=== PATIENT | male | born 1950 | race Caucasian/White ===

== ENCOUNTER 2018-06-08 12:21 | Inpatient (IN) ==
[2018-06-08] MEDS ORDERED: Morphine Inj 4 MG/ML Vial IV.PUSH ONE (12:31)
--- NOTE | 2018-06-08 12:36 | ED ---
HPI General Chief complaint: Fall Stated complaint: Fall Time Seen by Provider: 06/08/18 12:31 History of Present Illness HPI narrative: This is a 68-year-old male who presents via EMS for evaluation after a mechanical fall. He reports that prior to arrival he was walking in his driveway wearing flip-flops when he tripped and fell, landing on his right hip. No head trauma or loss of consciousness. He is complaining of right hip pain, achy, constant, worse with movement, improved when he lays on his left side. He reports some numbness in his right leg. He denies any back pain, neck pain, abdominal pain. Symptoms are moderate. His primary care physician is Dr. Rolle. He reports a history of hypertension and Crohn's disease. No other complaints at this time. Related Data Home Medications Medication Instructions Recorded Confirmed losartan 50 mg PO DAILY 06/08/18 06/08/18 mesalamine 800 mg PO TID 06/08/18 06/08/18 Allergies Allergy/AdvReac Type Severity Reaction Status Date / Time No Known Allergies Allergy Verified 06/08/18 12:31 Review of Systems ROS: all other systems reviewed are negative [facility] Medical History Medical History HTN (hypertension) (Acute) IBS (irritable bowel syndrome) (Acute) Surgical History Surgical History H/O hernia repair (Acute) H/O right knee surgery (Acute) Social History Social History Second Hand Smoke Exposure: No Smoking Status: Never smoker How Often Do You Have a Drink Containing Alcohol: Never Recent Travel in [facility] within the Last 8 Weeks: No Recent Out of Country Travel within the Last 8 Weeks: No Exam Narrative Exam Narrative: GENERAL: Well-developed well-nourished male no acute distress SKIN: Warm and dry. No abrasions, no ecchymosis. HEAD: Atraumatic. Normocephalic. EYES: Pupils equal and round. No scleral icterus. No injection or drainage. CARDIOVASCULAR: Regular rate and rhythm. No murmur appreciated. RESPIRATORY: No accessory muscle use. Clear to auscultation. Breath sounds equal bilaterally. GASTROINTESTINAL: Abdomen soft, non-tender, nondistended. Hepatic and splenic margins not palpable. MUSCULOSKELETAL: There is tenderness to palpation to the lateral aspect of the right hip. The patient is holding his right leg in slight flexion on top of folded blankets. There is no obvious external rotation passively. 2+ dorsalis pedis pulse bilaterally. Distal sensation is preserved. There is an old appearing healing laceration on the dorsal aspect of the right foot. NEUROLOGICAL: Awake and alert. No obvious cranial nerve deficits. Motor grossly within normal limits. Normal speech. Course Initial Documented Vital Signs Temperature 98.6 F 06/08/18 12:25 Pulse Rate 72 06/08/18 12:25 Respiratory Rate 18 06/08/18 12:25 Blood Pressure 143/71 H 06/08/18 12:25 Pulse Oximetry 97 06/08/18 12:25 Last Documented Vital Signs Temperature 98.6 F 06/08/18 12:25 Pulse Rate 72 06/08/18 12:25 Respiratory Rate 18 06/08/18 12:25 Blood Pressure 143/71 H 06/08/18 12:25 Pulse Oximetry 97 06/08/18 12:25 Medical Decision Making MDM Narrative Medical decision making narrative: X-ray imaging of the hip and pelvis will be obtained. The patient will be given IV morphine and Zofran. The right hip intertrochanteric fracture. Plan is for discussion with orthopedic surgeon, admission. Discussed with Dr. Emerson, Dr. Douglas. Medical Screen Exam Complete: Yes Emergency Medical Condition: Yes Differential Diagnosis Differential Diagnosis: Right hip fracture, contusion, pelvic fracture, dislocation Imaging Data Radiologist's impression: Hip X-Ray 06/08/18 12:37 CONCLUSION: 3 fragment intertrochanteric fracture of the right hip. Discharge Plan Discharge Disposition Patient Disposition: 30 Still Patient Discharge Condition Condition: Stable Discharge Details Diagnosis: Closed fracture of right hip Physicians Team ED Provider: Jose Mitchell ED Midlevel Provider: Ulices Foster Rxs /Orders / Referrals /Forms Prescriptions: No Action losartan 50 mg Tablet 50 mg PO DAILY RF: 0 mesalamine 800 mg Tablet,Delayed Release (Dr/Ec) 800 mg PO TID RF: 0 Status ED Status: Pending Admission
--- NOTE | 2018-06-08 13:21 | XR ---
EXAM DATE: 06/08/2018 1:16 PM EST AGE/SEX: 68 years / Male INDICATIONS: Pain from fall. CLINICAL DATA: This is the patient's initial encounter. Patient reports that signs and symptoms have been present for 1 day and indicates a pain score of 10/10. MEDICAL/SURGICAL HISTORY: None. None. COMPARISON: No prior exams available for comparison. FINDINGS: A 3 fragment intertrochanteric fracture is identified through the proximal right femur. The femoral h ead remains well-seated within the acetabulum. CONCLUSION: 3 fragment intertrochanteric fracture of the right hip. Electronically signed by: Viraj Miramontes MD 06/08/2018 1:20 PM EST
[2018-06-08 14:09] LABS: Baso % (Auto) 0.3 % (0.0-2.0); Eos % (Auto) 0.2 % (0.0-4.0); Hematocrit 41.2 % (39.0-51.0); Hemoglobin 13.7 gm/dL (13.0-17.0); Lymph # (Auto) 0.9 th/mm3 (1.0-4.8); Lymph % (Auto) 7.7 % (9.0-44.0); Mean Corpuscular HGB Conc 33.3 % (32.0-36.0); Mean Corpuscular Hemoglobin 31.5 pg (27.0-34.0); Mean Corpuscular Volume 94.5 fL (80.0-100.0); Mean Platelet Volume 6.9 fL (7.0-11.0); Mono # (Auto) 0.5 th/mm3 (0.0-0.9); Mono % (Auto) 4.7 % (0.0-8.0); Neut # (Auto) 9.9 th/mm3 (1.8-7.7); Neut % (Auto) 87.1 % (16.0-70.0); Platelet Count 197 th/mm3 (150-450); Red Blood Count 4.35 mil/mm3 (4.50-5.90); Red Cell Distribution Width 14.1 % (11.6-17.2); White Blood Count 11.3 th/mm3 (4.0-11.0)
[2018-06-08 14:21] LABS: Activated Partial Thrombo Time 26.4 sec (23.4-31.7); Prothrombin Time 10.6 sec (9.8-11.6)
--- NOTE | 2018-06-08 14:42 | XR ---
EXAM DATE: 06/08/2018 1:49 PM EST AGE/SEX: 68 years / Male INDICATIONS: Cough. CLINICAL DATA: This is the patient's initial encounter. Patient reports that signs and symptoms have been present for 1 day and indicates a pain score of 0/10. MEDICAL/SURGICAL HISTORY: None. None. COMPARISON: No prior exams available for comparison. FINDINGS: Lungs are hypoaerated. There is no evidence of acute airspace disease or significant congestion. Hear t is mildly prominent. Osseous structures are intact. CONCLUSION: No evidence of acute cardiopulmonary process. Electronically signed by: Viraj Miramontes MD 06/08/2018 2:41 PM EST
[2018-06-08 14:48] LABS: Calcium 8.5 mg/dL (8.5-10.1); Potassium 3.9 meq/L (3.5-5.1)
[2018-06-08] MEDS ORDERED: Acetaminophen 325 MG Tablet PO PRN ×2 (15:10→18:45)
--- NOTE | 2018-06-08 15:17 | P.HPIM ---
History of Present Illness Primary Care Physician: Rosa Caesy MD Chief Complaint: Right hip pain History of Present Illness: Mr. Clayton is a 68 y/o male with HTN and Crohn's disease. He presented to the ED at [facility] on 06/08/18 with complaints of right hip pain after a fall at home. He reports that prior to arrival he was walking in his driveway wearing flip-flops when he tripped and fell, landing on his right hip. There was no reported head trauma or loss of consciousness. He describes the right hip pain as achy, constant, worse with movement, improved when he lays on his left side. He reports some numbness in his right leg. He denies any back pain, neck pain, abdominal pain. Hip Xray in the ED revealed 3 fragment intertrochanteric fracture of the right hip. Pt is being admitted for orthopedic surgery evaluation. Pt reports that in the past after previous surgeries he has had nausea/vomiting following surgery. 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 This includes certification that hospital inpatient services are reasonable and necessary and in the case of services not specified as inpatient-only under 42 CFR 419.22(n), that they are appropriately provided as inpatient services in accordance to with the 2-midnight benchmark under 43 CFR 412.3(e) Estimated Total Length of Stay (Days): 3 Plans for Post Hospital Care: SNF Medications and Allergies Allergies Allergy/AdvReac Type Severity Reaction Status Date / Time No Known Allergies Allergy Verified 06/08/18 12:31 Home Medications Medication Instructions Recorded Confirmed Type losartan 50 mg PO DAILY 06/08/18 06/08/18 History mesalamine 800 mg PO TID 06/08/18 06/08/18 History Active Medications: Active Medications Acetaminophen (Tylenol) 650 mg PO Q4H PRN PRN Reason: Temp > 100.4 Al Hydroxide/Mg Hydroxide (Milk Of Magnesia Liq) 30 ml PO Q12H PRN PRN Reason: Mild Constipation Ondansetron HCl (Zofran Inj) 4 mg IV.PUSH Q6H PRN PRN Reason: NAUSEA OR VOMITING Senna/Docusate Sodium (Cynthia-Colace) 1 tab PO BID VANITA Sennosides (Senokot) 17.2 mg PO Q12H PRN PRN Reason: Moderate Constipation Physical Exam Vital signs: Last Vital Signs Temp 98.6 F 06/08/18 12:25 Pulse 72 06/08/18 12:25 Resp 18 06/08/18 12:25 BP 143/71 H 06/08/18 12:25 Pulse Ox 97 06/08/18 12:25 Narrative: GENERAL: NAD, AAOx3 SKIN: Warm and dry. HEENT: Atraumatic. Normocephalic. Pupils equal and round. No scleral icterus. No injection or drainage. No nasal bleeding or discharge. Mucous membranes pink and moist. NECK: Trachea midline. No JVD. CARDIO: Regular rate and rhythm. RESP: No accessory muscle use. Clear to auscultation. Breath sounds equal bilaterally. ABD: +BS, soft, non-tender, nondistended. Hepatic and splenic margins not palpable. EXT: Extremities without clubbing, cyanosis, or edema. No obvious deformities. NEURO: Awake and alert. No obvious cranial nerve deficits. Motor grossly within normal limits. Normal speech. PSYCHIATRIC: Appropriate mood and affect; insight and judgment normal. Results Labs CBC & Chem 7: 06/08/18 13:58 06/08/18 13:58 Imaging Hip X-Ray 06/08/18 12:37 CONCLUSION: 3 fragment intertrochanteric fracture of the right hip. Chest X-Ray 06/08/18 13:26 CONCLUSION: No evidence of acute cardiopulmonary process. Caprini VTE Risk Assessment Caprini VTE Risk Assessment: Moderate/High Risk (score >= 2) Caprini Risk Assessment Model: Point Value = 1 Point Value = 2 Point Value = 3 Point Value = 5 Age 41-60 Minor surgery BMI > 25 kg/m2 Swollen legs Varicose veins or History of unexplained or recurrent spontaneous Oral contraceptives or hormone replacement Sepsis (< 1 month) Serious lung disease, including pneumonia (< 1 month) Abnormal pulmonary function Acute myocardial infarction Congestive heart failure (< 1 month) History of inflammatory bowel disease Medical patient at bed rest Age 61-74 Arthroscopic surgery Major open surgery (> 45 min) Laparoscopic surgery (> 45 min) Malignancy Confined to bed (> 72 hours) Immobilizing plaster cast Central venous access Age >= 75 History of VTE Family history of VTE Factor V Leiden Prothrombin [id number] Lupus anticoagulant Anticardiolipin antibodies Elevated serum homocysteine Heparin-induced thrombocytopenia Other congenital or acquired thrombophilia Stroke (< 1 month) Elective arthroplasty Hip, pelvis, or leg fracture Acute spinal cord injury (< 1 month) Prophylaxis Regimen: Total Risk Factor Score Risk Level Prophylaxis Regimen 0-1 Low Early ambulation 2 Moderate Order ONE of the following: *Sequential Compression Device (SCD) *Heparin 5000 units SQ BID 3-4 Higher Order ONE of the following medications: *Heparin 5000 units SQ TID *Enoxaparin/Lovenox 40 mg SQ daily (WT < 150 kg, CrCl > 30 mL/min) *Enoxaparin/Lovenox 30 mg SQ daily (WT < 150 kg, CrCl > 10-29 mL/min) *Enoxaparin/Lovenox 30 mg SQ BID (WT < 150 kg, CrCl > 30 mL/min) AND/OR *Sequential Compression Device (SCD) 5 or more Highest Order ONE of the following medications: *Heparin 5000 units SQ TID (Preferred with Epidurals) *Enoxaparin/Lovenox 40 mg SQ daily (WT < 150 kg, CrCl > 30 mL/min) *Enoxaparin/Lovenox 30 mg SQ daily (WT < 150 kg, CrCl > 10-29 mL/min) *Enoxaparin/Lovenox 30 mg SQ BID (WT < 150 kg, CrCl > 30 mL/min) AND *Sequential Compression Device (SCD) Assessment and Plan Assessment (1) Closed fracture of right hip: Code(s): S72.001A - Fracture of unspecified part of neck of right femur, initial encounter for closed fracture Status: Acute (2) HTN (hypertension): Code(s): I10 - Essential (primary) hypertension Status: Chronic (3) Crohns disease: Code(s): K50.90 - Crohn's disease, unspecified, without complications Status: Chronic Plan Right intertrochanteric hip fracture Trip and fall injury - Pt is a 68 y/o male with HTN and Crohn's disease. - He presented to the ED at [facility] on 06/08/18 with complaints of right hip pain after a fall at home. He reports that prior to arrival he was walking in his driveway wearing flip-flops when he tripped and fell, landing on his right hip. - Hip Xray in the ED revealed 3 fragment intertrochanteric fracture of the right hip. - Pt is being admitted for orthopedic surgery evaluation. Case discussed with Dr. Emerson in the ED and he is planning for surgery this evening. - Pt is NPO - IVF - Pain control PRN - Pt will need PT following surgery - DVT prophylaxis per Ortho post-op HTN - Cont. home meds as tolerated Crohn's disease - Cont. home meds Attending Attestation Patient examined. Assessment and plan formulated with Veronica Marcus PA-C. I agree with the above. femur fx s/p trip fall. going to OR tonight. discussed with Dr Emerson no cp or sob. EKG reviewed. labs reviewed. ok to proceed with planned surgery. _ (1) Closed fracture of right hip Qualifiers: Encounter type: Fracture healing:
--- NOTE | 2018-06-08 15:39 | P.CONOP ---
[facility] Orthopedics Consult Note - [facility] Consult date: 06/08/18 Requesting physician: Yovanny Douglas Consult reason: fracture Chief complaint: Closed right hip fracture Narrative: This 68-year-old male known to me being treated for osteoarthritis of his knee was doing well until earlier today when he fell at home tripping over his sandal. He landed onto his right side. He had immediate pain and inability to ambulate. [facility] to [facility] [address]. X -rays revealed an intertrochanteric fracture of the right proximal femur. He was admitted to the medical service with orthopedic consultation requested. The patient denies any other extremity injury at the time of his fall. He denies loss of consciousness or hitting his head. He denies low back pain although does have a previous history of stenosis. Review of Systems All other systems reviewed negative except as stated in [facility] - History History Provided By: Patient - Medical History Medical History: Medical History (Last Updated 06/08/18 @ 12:58 by Kathy Carlson) HTN (hypertension) IBS (irritable bowel syndrome) - Surgical History Surgical History: Surgical History (Last Updated 06/08/18 @ 12:51 by Kathy Carlson) H/O hernia repair H/O right knee surgery - Tobacco History Second Hand Smoke Exposure: No Smoking Status: Never smoker - Alcohol History How Often Do You Have a Drink Containing Alcohol: Never - Travel History Recent Travel in the [place] Within the Last 8 Weeks: No Recent Travel Out of the Country Within the Last 8 Weeks: No - Immunization History Tetanus Immunization: Unsure Medications and Allergies Active Medications: Active Medications Acetaminophen (Tylenol) 650 mg PO Q4H PRN PRN Reason: Temp > 100.4 Al Hydroxide/Mg Hydroxide (Milk Of Pina Lilaith) 30 ml PO Q12H PRN PRN Reason: Mild Constipation Losartan Potassium (Cozaar) 50 mg PO DAILY VANITA Mesalamine (Asacol Hd Dr) 800 mg PO TID VANITA Ondansetron HCl (Zofran Inj) 4 mg IV.PUSH Q6H PRN PRN Reason: NAUSEA OR VOMITING Senna/Docusate Sodium (Cynthia-Colace) 1 tab PO BID VANITA Sennosides (Senokot) 17.2 mg PO Q12H PRN PRN Reason: Moderate Constipation Allergies Allergy/AdvReac Type Severity Reaction Status Date / Time No Known Allergies Allergy Verified 06/08/18 12:31 Home Medications Medication Instructions Recorded Confirmed Type losartan 50 mg PO DAILY 06/08/18 06/08/18 History mesalamine 800 mg PO TID 06/08/18 06/08/18 History Exam Vital signs: Vital Signs 06/08/18 12:25 Temperature 98.6 F Pulse Rate 72 Respiratory Rate 18 Blood Pressure 143/71 H Pulse Oximetry 97 Intake & Output 06/07/18 06/08/18 06/08/18 19:59 06:59 18:59 Weight 92.986 kg Narrative: The right lower extremity is slightly shortened and rotated. He has pain with any attempted range of motion. He moves his toes and ankle freely. He has good capillary refill and sensation. There is a small wound on the dorsum of his foot from a recent injury. There is no surrounding cellulitic change. He moves both upper extremities and his left lower extremity without discomfort. Results - Labs Result Diagrams: 06/08/18 13:58 06/08/18 13:58 Labs: Laboratory Results - last 24 hr 06/08/18 06/08/18 06/08/18 13:58 13:58 13:58 WBC 11.3 H RBC 4.35 L Hgb 13.7 Hct 41.2 MCV 94.5 MCH 31.5 MCHC 33.3 RDW 14.1 Plt Count 197 MPV 6.9 L Neut % (Auto) 87.1 H Lymph % (Auto) 7.7 L [place] % (Auto) 4.7 Eos % (Auto) 0.2 Baso % (Auto) 0.3 Neut # (Auto) 9.9 H Lymph # (Auto) 0.9 L [place] # (Auto) 0.5 Eos # (Auto) 0.0 Baso # (Auto) 0.0 WBC Differential . Differential Comment Auto diff final PT 10.6 INR 1.0 APTT 26.4 Sodium 144 Potassium 3.9 Chloride 112 H Carbon Dioxide 26.0 Anion Gap 6 BUN 14 Creatinine 0.89 Estimated GFR 85 L Random Glucose 136 H Calcium 8.5 - Diagnostic results Imaging: Impressions Hip X-Ray 06/08/18 12:37 CONCLUSION: 3 fragment intertrochanteric fracture of the right hip. Chest X-Ray 06/08/18 13:26 CONCLUSION: No evidence of acute cardiopulmonary process. Assessment and Plan - Problem List (1) Intertrochanteric fracture of right femur Code(s): S72.141A - Displaced intertrochanteric fracture of right femur, initial encounter for closed fracture Status: Acute Qualifiers: Encounter type: initial encounter Fracture type: closed Fracture alignment: displaced Qualified Code(s): S72.141A - Displaced intertrochanteric fracture of right femur, initial encounter for closed fracture - Assessment and Plan The findings were discussed with the patient and his . Recommendations are for internal fixation to allow mobilization and pain control. The nature of the planned surgical procedure, the risks, the expected benefits, as well as the postoperative expectations have been discussed with him in detail. In addition, the alternatives to treatment and risks of same were discussed. The patient and his acknowledge full understanding and consent to it.
[2018-06-08] MEDS ORDERED: Morphine Inj 4 MG/ML Vial IV.PUSH PRN (15:56)
[2018-06-08] MEDS ORDERED: Famotidine PF Inj 20 MG/2 ML Vial ONE (17:01)
[2018-06-08] MEDS ORDERED: ceFAZolin 2 GM Premix Inj 2 GM/50 ML PIGGYBACK IV.SIG ONE (17:28)
[2018-06-08] MEDS ORDERED: Sod Chloride 0.9% Inj 1,000 ML IV.CONT SCH (18:00)
--- NOTE | 2018-06-08 18:40 | P.OP ---
- Preoperative Diagnosis (1) Intertrochanteric fracture of right femur - Postoperative Diagnosis (1) Intertrochanteric fracture of right femur Date of procedure: 06/08/18 Procedure: Closed reduction with trochanteric nail fixation right proximal femur fracture Implants: Synthes trochanteric nail Anesthesia: OMAYRA Surgeon: Yovanny Emerson MD Grader Green Meat: Annita Blackmon PA-C (Ashley) The surgical procedure was assisted by my physician's assistant womens volleyball coach. Her presence was necessary throughout the case for manipulation and positioning of the surgical extremity. My PA was assisting me throughout the duration of this procedure. The skill set of the physician assistant womens volleyball coach was medically necessary to complete this procedure. During the surgical case the surgical instrument repair specialist was working at the back table and the physician assistant womens volleyball coach was directly assisting me. Estimated blood loss (mL): 100 Pathology: none sent Operation and Findings: Procedure and findings: The patient was taken to the operative suite and after undergoing an adequate level of general anesthesia was placed supine on the fracture table. The right lower extremity was positioned in skin traction and the preoperative reduction checked in both the AP and lateral planes with the C- arm. It was then prepped and draped in usual sterile fashion with ChloraPrep. Preoperative antibiotic consisted of Ancef 2 g IV. An incision was made over the lateral aspect of the hip extending from the greater trochanter for distance approximately 3 cm. This was carried down to skin and subcutaneous tense tissue with a knife. Hemostasis was obtained electrocautery. The muscular fascia was incised and split longitudinally. An entry point was selected at the tip of the greater trochanter. This was entered with a threaded guidepin. The position was checked in both the AP and lateral planes with the C-arm. It was subsequently overdrilled. An 12 x 130 Synthes trochanteric nail was then impacted in the place. Utilizing the outrigger device an additional incision was made distally. A threaded guidepin was advanced through the lateral cortex, across the nail, into the femoral neck and seated in the subchondral bone of the femoral head. The position was checked in both the AP and lateral planes with the C-arm. A measurement was then made. A 100 helical blade was selected. The lateral cortex was overdrilled. The helical blade was then impacted in the place. The locking mechanism was then seated proximally. Utilizing the outrigger device a percutaneous incision was made distally. A trocar was placed against the lateral cortex. The distal interlocking screw hole was drilled and the appropriate length screw placed. The position of the fracture reduction and placement of the internal fixation were checked in both the AP and lateral planes with the C-arm. The wounds were then thoroughly irrigated. They were closed in layers utilizing 0 Vicryl suture on the muscular fascia and deep tissue, 2-0 Vicryl suture on the subcutaneous tense tissue and baltazar on the skin. Sterile dressings were applied, the patient was awakened, transferred to the hospital bed and taken to the recovery room in stable condition.
[2018-06-08] MEDS ORDERED: Bisacodyl 10 MG Supp RECTAL PRN (18:45)
[2018-06-08] MEDS ORDERED: Morphine Sulfate Inj 2 MG/ML Vial IV.PUSH PRN (18:45)
[2018-06-08] MEDS ORDERED: oxyCODONE/Acetaminophen 10/325 Tablet PO PRN (18:45)
[2018-06-08] MEDS ORDERED: Aluminum/Magnesium/Simethacone Susp 30 ML UDC PO PRN (18:45)
[2018-06-08] MEDS ORDERED: Temazepam 15 MG Capsule PO PRN (18:45)
[2018-06-08] MEDS ORDERED: Post-op Orders (for Pharmacy) OTHER STA (18:45)
[2018-06-08] MEDS ORDERED: *Meperidine Inj 25 MG/ML Vial PERIprocedural Use ONLY ONE (18:53)
[2018-06-08] MEDS: Mesalamine 800 MG Tablet DR PO SCH (18:59)
[2018-06-08] MEDS ORDERED: fentaNYL Citrate Inj 100 MCG/2 ML Ampul ONE (19:00)
--- NOTE | 2018-06-08 19:14 | XR ---
EXAM DATE: 06/08/2018 7:07 PM EST AGE/SEX: 68 years / Male INDICATIONS: Right hip troch nail. CLINICAL DATA: This is the patient's initial encounter. Patient reports that signs and symptoms have been present for 1 day and indicates a pain score of Nonresponsive. MEDICAL/SURGICAL HISTORY: None. None. COMPARISON: [facility] [place], HIP RIGHT W AP PELVIS 2V, 06/08/2018. . FINDINGS: Interim nail and roxie fixation of the intertrochanteric fracture of the right femur. Alignment is near -anatomic. No acute complication demonstrated. CONCLUSION: Intertrochanteric fracture of the right femur undergoing nail and roxie fixation. Near-anatomic alignme nt. No acute complication seen. Electronically signed by: Ulises Hidalgo MD 06/08/2018 7:12 PM EST
[2018-06-08] MEDS ORDERED: *morphine SULFATE 4 MG/ML PERIprocedure ONLY ONE ×2 (19:16→19:45)
[2018-06-08] MEDS ORDERED: Senna/Docusate Sodium 8.6/50 MG Tablet PO SCH (21:00)
[2018-06-08] MEDS: Senna/Docusate Sodium 8.6/50 MG Tablet PO SCH (21:06)
[2018-06-08] MEDS: Multivitamin/Minerals Therapeutic Tablet PO SCH (21:06)
[2018-06-08] MEDS: ceFAZolin 2 GM Premix Inj 2 GM/50 ML PIGGYBACK IV.SIG SCH (22:44)
[2018-06-09] MEDS: ceFAZolin 2 GM Premix Inj 2 GM/50 ML PIGGYBACK IV.SIG SCH ×2 (04:33→11:36)
[2018-06-09 07:14] LABS: Baso % (Auto) 0.1 % (0.0-2.0); Hematocrit 40.3 % (39.0-51.0); Hemoglobin 13.4 gm/dL (13.0-17.0); Lymph # (Auto) 0.8 th/mm3 (1.0-4.8); Lymph % (Auto) 6.8 % (9.0-44.0); Mean Corpuscular HGB Conc 33.4 % (32.0-36.0); Mean Corpuscular Hemoglobin 31.5 pg (27.0-34.0); Mean Corpuscular Volume 94.4 fL (80.0-100.0); Mean Platelet Volume 7.5 fL (7.0-11.0); Mono # (Auto) 0.7 th/mm3 (0.0-0.9); Mono % (Auto) 6.4 % (0.0-8.0); Neut # (Auto) 9.8 th/mm3 (1.8-7.7); Neut % (Auto) 86.7 % (16.0-70.0); Platelet Count 192 th/mm3 (150-450); Red Blood Count 4.27 mil/mm3 (4.50-5.90); Red Cell Distribution Width 14.3 % (11.6-17.2); White Blood Count 11.3 th/mm3 (4.0-11.0)
--- NOTE | 2018-06-09 07:25 | P.PNOP ---
Subjective Interval history: Pt awake and alert. Admits his pain is well controlled. Has not worked with PT yet. Physical Exam Vital signs: Vital Signs 06/08/18 12:25 06/08/18 18:44 06/08/18 18:45 Temperature 98.6 F 98.3 F Pulse Rate 72 86 87 Respiratory Rate 18 18 23 Blood Pressure 143/71 H 144/88 H 143/87 H Pulse Oximetry 97 95 96 06/08/18 19:00 06/08/18 19:19 06/08/18 19:20 Temperature Pulse Rate 73 71 Respiratory Rate 15 16 17 Blood Pressure 148/87 H 155/86 H Pulse Oximetry 96 98 06/08/18 19:30 06/08/18 19:45 06/08/18 19:47 Temperature 97.5 F L Pulse Rate 77 83 Respiratory Rate 15 17 15 Blood Pressure 149/88 H 149/86 H Pulse Oximetry 98 97 06/08/18 20:00 06/09/18 00:00 06/09/18 04:00 Temperature 97.9 F 97.7 F 97.6 F Pulse Rate 80 89 75 Respiratory Rate 17 17 18 Blood Pressure 149/93 H 156/90 H 157/85 H Pulse Oximetry 94 L 96 98 Intake & Output 06/08/18 06/09/18 06/09/18 18:59 06:59 18:59 Intake Total 550 / 550 100 / 100 Output Total 50 / 50 375 / 375 Balance 500 / 500 -275 / -275 Weight 92.986 kg 93.2 kg Intake: IV 50 / 50 100 / 100 Ancef 2 GM Premix Inj 2 gm In 50 / 50 100 / 100 50 ml @ 100 mls/hr IV.SIG Q6H [facility] Rx#:[id number] Anesthesia Amount 500 / 500 Output: Urine 375 / 375 Estimated Blood Loss 50 / 50 Other: # Voids 2 Date of Last Bowel Movement 06/08/18 Weight On Admission 92.986 kg Narrative: Dressing dry and intact. Tender to palpation with mild swelling around incision site. Appropriate range of motion expected post operatively. Freely able to move distal digits. No calf pain. Negative Yasmani's sign. Good cap refill. 2+ pedal pulses. Neurovascular intact. Results - Labs CBC & Chem 7: 06/09/18 06:28 06/08/18 13:58 Laboratory Results - last 24 hr 06/08/18 06/08/18 06/08/18 13:58 13:58 13:58 WBC 11.3 H RBC 4.35 L Hgb 13.7 Hct 41.2 MCV 94.5 MCH 31.5 MCHC 33.3 RDW 14.1 Plt Count 197 MPV 6.9 L Neut % (Auto) 87.1 H Lymph % (Auto) 7.7 L Wright % (Auto) 4.7 Eos % (Auto) 0.2 Baso % (Auto) 0.3 Neut # (Auto) 9.9 H Lymph # (Auto) 0.9 L Wright # (Auto) 0.5 Eos # (Auto) 0.0 Baso # (Auto) 0.0 WBC Differential . Differential Comment Auto diff final PT 10.6 INR 1.0 APTT 26.4 Sodium 144 Potassium 3.9 Chloride 112 H Carbon Dioxide 26.0 Anion Gap 6 BUN 14 Creatinine 0.89 Estimated GFR 85 L Random Glucose 136 H Calcium 8.5 06/09/18 06:28 WBC 11.3 H RBC 4.27 L Hgb 13.4 Hct 40.3 MCV 94.4 MCH 31.5 MCHC 33.4 RDW 14.3 Plt Count 192 MPV 7.5 Neut % (Auto) 86.7 H Lymph % (Auto) 6.8 L Wright % (Auto) 6.4 Eos % (Auto) 0.0 Baso % (Auto) 0.1 Neut # (Auto) 9.8 H Lymph # (Auto) 0.8 L Wright # (Auto) 0.7 Eos # (Auto) 0.0 Baso # (Auto) 0.0 WBC Differential . Differential Comment Auto diff final PT INR APTT Sodium Potassium Chloride Carbon Dioxide Anion Gap BUN Creatinine Estimated GFR Random Glucose Calcium - Imaging Impressions Hip X-Ray 06/08/18 00:00 CONCLUSION: Intertrochanteric fracture of the right femur undergoing nail and roxie fixation. Near-anatomic alignment. No acute complication seen. Hip X-Ray 06/08/18 12:37 CONCLUSION: 3 fragment intertrochanteric fracture of the right hip. Chest X-Ray 06/08/18 13:26 CONCLUSION: No evidence of acute cardiopulmonary process. - Procedures Right Troch Nail 06/08/18, Dr Emerson Assessment and Plan - Problem List (1) Intertrochanteric fracture of right femur Code(s): S72.141A - Displaced intertrochanteric fracture of right femur, initial encounter for closed fracture Status: Acute Qualifiers: Encounter type: initial encounter Fracture type: closed Fracture alignment: displaced Qualified Code(s): S72.141A - Displaced intertrochanteric fracture of right femur, initial encounter for closed fracture - Assessment and Plan POD #1 Right Troch Nail Ortho status stable Progress rehab, WBAT No change dressing CM to arrange HHC vs rehab ASA 81mg BID for DVT prophylaxis Discharge planning, most likely tomorrow F/U with Dr Emerson or myself in 2 weeks from d/c
[2018-06-09 07:40] LABS: Calcium 8.2 mg/dL (8.5-10.1); Carbon Dioxide 22.1 meq/L (21.0-32.0); Potassium 4.1 meq/L (3.5-5.1)
[2018-06-09] MEDS: Senna/Docusate Sodium 8.6/50 MG Tablet PO SCH ×2 (08:45→21:00)
[2018-06-09] MEDS: Multivitamin/Minerals Therapeutic Tablet PO SCH ×2 (08:45→21:00)
[2018-06-09] MEDS: Mesalamine 800 MG Tablet DR PO SCH ×4 (10:57→18:07)
--- NOTE | 2018-06-09 11:07 | P.PNIM ---
Subjective Interval history: No new complaints. Pain is controlled. Pt is tolerating PO intake. No n/v/d. Physical Exam Vital signs: Last Vital Signs Temp 97.8 F 06/09/18 08:00 Pulse 72 06/09/18 08:00 Resp 18 06/09/18 08:00 BP 169/88 H 06/09/18 08:00 Pulse Ox 98 06/09/18 08:00 Intake & Output 06/07/18 06/08/18 06/09/18 06/10/18 07:59 06:59 06:59 06:59 Intake Total 650 / 650 1000 / 1000 Output Total 425 / 425 Balance 225 / 225 1000 / 1000 Weight 93.2 kg Results Labs CBC & Chem 7: 06/09/18 06:28 06/09/18 06:28 Imaging Imaging: Impressions Hip X-Ray 06/08/18 00:00 CONCLUSION: Intertrochanteric fracture of the right femur undergoing nail and roxie fixation. Near-anatomic alignment. No acute complication seen. Hip X-Ray 06/08/18 12:37 CONCLUSION: 3 fragment intertrochanteric fracture of the right hip. Chest X-Ray 06/08/18 13:26 CONCLUSION: No evidence of acute cardiopulmonary process. Procedures Procedures: Right Troch Nail 06/08/18, Dr Emerson Assessment and Plan (1) Closed fracture of right hip: Code(s): S72.001A - Fracture of unspecified part of neck of right femur, initial encounter for closed fracture Status: Acute (2) HTN (hypertension): Code(s): I10 - Essential (primary) hypertension Status: Chronic (3) Crohns disease: Code(s): K50.90 - Crohn's disease, unspecified, without complications Status: Chronic Plan Plan Right intertrochanteric hip fracture Trip and fall injury - Pt is a 68 y/o male with HTN and Crohn's disease. - He presented to [place] [facility] [place] with complaints of right hip pain after a fall at home. He reports that prior to arrival he was walking in his driveway wearing flip-flops when he tripped and fell, landing on his right hip. - Hip Xray in the ED revealed 3 fragment intertrochanteric fracture of the right hip. - Pt underwent ORIF of right Femur by Dr. Yovanny Emerson (06/08/18) utilizing Synthes trochanteric nail - PT - percocet prn pain - xarelto 10mg daily for DVT prophylaxis - anticipate d/c to SNF (06/10/18) HTN - Cont. home meds as tolerated Crohn's disease - Cont. home meds Progress Note: Quality VTE Deep Vein Thrombosis/Pulmonary Embolism Present on Admission: No _ (1) Closed fracture of right hip Qualifiers: Encounter type: Fracture healing:
--- NOTE | 2018-06-09 11:23 | P.DCO ---
Diagnosis (1) Closed fracture of right hip: Status: Acute (2) HTN (hypertension): Status: Chronic (3) Crohns disease: Status: Chronic Physical Therapy Order: Evaluate and treat, Improve ambulation and Strength and gait training Home Health Nursing Order: Medical education, Signs/symptoms of disease process, Medication education-adverse effect, Wound care and dressing changes and Nursing assessment with vital signs Case Management Consult No I have seen patient Jose Clayton on 06/09/18. My clinical findings support the need for the requested home health care services because: Limited mobility due to disease progression, Deconditioned with increased weakness, Medication compliance is questionable, Limited ability to care for self, Need for psychosocial assistance and High risk of falls I certify that my clinical findings support that this patient is homebound because: Post-op weakness, Unsteady gait/balance, Unsafe to leave home unassisted, Need for psychosocial assistance and Unable to use public transportation _ (1) Closed fracture of right hip Qualifiers: Encounter type: Fracture healing:
[2018-06-09] MEDS: Rivaroxaban 10 MG Tablet PO SCH (21:00)
--- NOTE | 2018-06-09 21:29 | ECG ---
Date Performed: 06/08/2018 Time Performed: 16:06:27 PTAGE: 68 years EKG: Sinus rhythm MARKED LEFT AXIS DEVIATION MODERATE VOLTAGE CRITERIA FOR LVH, CONSIDER NORMAL VARIANT ABNORMAL ECG PREVIOUS TRACING : 06/07/1999 14.40 Since the previous tracing, no significant change noted DOCTOR: Chanda Quan Interpretating Date/Time 06/09/2018 21:28:29
[2018-06-10] MEDS: Senna/Docusate Sodium 8.6/50 MG Tablet PO SCH (09:00)
[2018-06-10] MEDS: Multivitamin/Minerals Therapeutic Tablet PO SCH (09:00)
[2018-06-10] MEDS: Mesalamine 800 MG Tablet DR PO SCH ×2 (09:00→12:21)
[2018-06-10] MEDS: Rivaroxaban 10 MG Tablet PO SCH (09:00)
--- NOTE | 2018-06-10 11:33 | P.DS ---
DS: Providers Date of admission: 06/08/18 13:45 Primary care physician: Rosa Casey MD Consults: 06/08/18 13:54 Consult to Orthopedic Surgery Routine Consulting Provider: Yovanny Emerson Preferred Rubber Attacher:: Yovanny Emerson Reason for Consultation: Right hip fracture, do not page he is aware. Spoke with:: ADD TO LIST PER ABOVE NOTE DO NOT PAGE Ordering Provider: JIGNA 06/09/18 14:13 HUB Only Consult Order Routine Consulting Provider: Rolando Yeager DS: Diagnosis Discharge Diagnosis (1) Closed fracture of right hip: Status: Acute (2) HTN (hypertension): Status: Chronic (3) Crohns disease: Status: Chronic DS: Summary Right intertrochanteric hip fracture Trip and fall injury - Pt is a 68 y/o male with HTN and Crohn's disease. - [place] [facility] [place] with complaints of right hip pain after a fall at home. He reports that prior to arrival he was walking in his driveway wearing flip-flops when he tripped and fell, landing on his right hip. - Hip Xray in the ED revealed 3 fragment intertrochanteric fracture of the right hip. - Pt underwent ORIF of right Femur by Dr. Yovanny Emerson (06/08/18) utilizing Synthes trochanteric nail - PT - percocet prn pain - ASA 81mg BID per Orthopedic service - anticipate d/c to SNF (06/10/18) - see discharge orders - f/u with Dr. Emerson in 2 weeks. HTN - Cont. home meds as tolerated Crohn's disease - Cont. home meds [facility] Prescription Drug Monitoring Database has been queried and verified prior to prescribing the controlled substance. Acute pain exception. This patient has normal, predicted, physiological, and time limited response to an adverse mechanical stimulus associated with surgery, trauma, or acute illness as described in my notes. There is a lack of alternative treatment options other than to include the prescribed narcotic treatment for this condition. Time Spent with Patient Total time spent providing and/or coordinating discharge services: Quality: VTE Deep Vein Thrombosis/Pulmonary Embolism Present on Admission: No Exam Narrative Exam Narrative: GENERAL: This is a well-nourished, well-developed patient, in no apparent distress. CARDIOVASCULAR: Regular rate and rhythm without murmurs, gallops, or rubs. RESPIRATORY: Clear to auscultation. Breath sounds equal bilaterally. No wheezes , rales, or rhonchi. GASTROINTESTINAL: Abdomen soft, non-tender, nondistended. Normal active bowel sounds MUSCULOSKELETAL: Extremities without clubbing, cyanosis, or edema. NEURO: Alert & Oriented x4 to person, place, time, situation. Moves all ext x4 DS: Data Impressions Hip X-Ray 06/08/18 00:00 CONCLUSION: Intertrochanteric fracture of the right femur undergoing nail and roxie fixation. Near-anatomic alignment. No acute complication seen. Hip X-Ray 06/08/18 12:37 CONCLUSION: 3 fragment intertrochanteric fracture of the right hip. Chest X-Ray 06/08/18 13:26 CONCLUSION: No evidence of acute cardiopulmonary process. Discharge Plan Discharge Disposition Patient Disposition: Discharge to SNF Discharge Condition Condition: Stable Discharge Order Discharge Orders: Discharge Order (Routine); Ordered 06/10/18 Ordered By: Chad Kelley Discharge Details Anticipated Discharge Date: 06/10/18 Physicians Team Primary Care Provider: Rosa Casey Attending Provider: Yovanny Douglas Other Providers: Yovanny Emerson ; Choice,Doctors Rxs /Orders / Referrals /Forms Prescriptions: New oxycodone-acetaminophen 5-325 mg Tablet 1 tab PO Q6HR PRN (Reason: pain) Qty: 30 RF: 0 aspirin 81 mg Tablet,Chewable 81 mg PO BID Qty: 42 RF: 0 magnesium hydroxide [Milk of Magnesia] 400 mg/5 mL Suspension 30 ml PO BID PRN (Reason: Mild Constipation) Qty: 118 RF: 0 lmmarbfv-yiyk-DB-calcium-mins [Thera M Plus (ferrous fumarat)] 9 mg iron-400 mcg Tablet 1 tab PO DAILY Qty: 30 RF: 0 sennosides-docusate sodium [Senna Plus] 8.6-50 mg Tablet 1 tab PO BID Qty: 60 RF: 0 Continue losartan 50 mg Tablet 50 mg PO DAILY RF: 0 mesalamine 800 mg Tablet,Delayed Release (Dr/Ec) 800 mg PO TID RF: 0 Referrals: Rosa Casey MD [Primary Care Provider] - See Instructions Discharge Instructions Patient Printed Instructions: How to Use an Incentive Spirometer (GEN), How to Choose and Use a Walker (GEN), Narcotic Pain Management (GEN) Additional Instructions: Make or keep your follow up appointments as directed by your providers. Take medications as directed. Continue to use incentive spirometer after discharge. Post Discharge Care Plan Care Plan Goals: Your Health Problems: Goals to Promote Your Health: * To prevent worsening of your condition * To maintain your health at the optimal level Directions to Meet Your Goals: * Take your medications as prescribed * Follow your dietary instruction * Follow activity as directed * Keep your appointments as scheduled * Take your immunizations and boosters as scheduled * If your symptoms worsen call your PCP * If no PCP go to Urgent Care or Emergency Room Smoking is dangerous to your health. Avoid second hand smoke. You may reach the 24-hour crisis hotline for domestic abuse at . Discharge Interventions Interventions: Discharge Planning - Case Management Last Done: 06/09/18 09:09 Status ED Status: Left Department
--- NOTE | 2018-06-10 13:42 | P.PNOP ---
Subjective Interval history: Postoperative #2 troch nail right hip. The patient is awake and alert and answers questions appropriately. He is in a bedside chair. His pain is well controlled. He has no other specific complaint. He is scheduled to be discharged today. Physical Exam Vital signs: Vital Signs 06/09/18 20:35 06/09/18 23:50 06/10/18 04:20 Temperature 97.6 F 97.8 F 97.8 F Pulse Rate 70 74 67 Respiratory Rate 17 16 17 Blood Pressure 157/83 H 154/87 H 141/83 H Pulse Oximetry 96 95 96 06/10/18 08:00 06/10/18 13:11 Temperature 97.5 F L 95.5 F L Pulse Rate 62 106 H Respiratory Rate 18 17 Blood Pressure 139/78 139/86 Pulse Oximetry 96 97 Intake & Output 06/09/18 06/10/18 06/10/18 18:59 06:59 18:59 Intake Total 1050 / 1050 960 / 960 Output Total 550 / 550 Balance 1050 / 1050 410 / 410 Weight 93 kg Intake: IV 1050 / 1050 LR 1000 mL Inj 1,000 ML @ 80 1000 / 1000 mls/hr IV.CONT .[id number] [facility] Rx# :[id number] Ancef 2 GM Premix Inj 2 gm In 50 / 50 50 ml @ 100 mls/hr IV.SIG Q6H [facility] Rx#:[id number] Oral 960 / 960 Output: Urine 550 / 550 Other: # Voids 1 Date of Last Bowel Movement 06/08/18 06/08/18 06/08/18 Narrative: Dressing dry and intact. Mild tenderness to palpation with mild swelling around incision site. Appropriate range of motion expected post operatively. Freely able to move distal digits. No calf pain. Negative Yasmani's sign. Good cap refill. 2+ pedal pulses. Neurovascular intact. Results - Labs CBC & Chem 7: 06/09/18 06:28 06/09/18 06:28 - Procedures Right Troch Nail 06/08/18, Dr Emerson Assessment and Plan - Problem List (1) Intertrochanteric fracture of right femur Code(s): S72.141A - Displaced intertrochanteric fracture of right femur, initial encounter for closed fracture Status: Acute Qualifiers: Encounter type: initial encounter Fracture type: closed Fracture alignment: displaced Qualified Code(s): S72.141A - Displaced intertrochanteric fracture of right femur, initial encounter for closed fracture - Assessment and Plan POD #1 Right Troch Nail Ortho status stable for discharge Progress rehab, WBAT No change dressing ASA 81mg BID for DVT prophylaxis F/U with Dr Emerson or myself in 2 weeks from d/c
== END 2018-06-10 15:50 ==
LOC: NEPE 12:21 → NEDA 13:45 → N06 20:00
PROVIDERS: ADMIT Hospitalist; ATTEND Hospitalist
DX: K50.90 Crohn's disease, unspecified, without complications; Y92.008 Other place in unspecified non-institutional (private) residence as the place of occurrence of the external cause; W01.0XXA Fall on same level from slipping, tripping and stumbling without subsequent striking against object, initial encounter; I10 Essential (primary) hypertension; S72.141A Displaced intertrochanteric fracture of right femur, initial encounter for closed fracture